=== PATIENT | female | born 1955 | race Hispanic/Latino ===

== ENCOUNTER 2018-01-10 05:48 | Day surgery (SDC) | payer OTHER ==
[2018-01-09 10:00] VITALS: BMI 24.2
--- NOTE | 2018-01-10 01:09 | HP ---
SHORT STAY HISTORY AND PHYSICAL DATE OF ADMISSION: 01/10/2018 HISTORY OF PRESENT ILLNESS: Ms. Iris Gary is a very pleasant 62-year-old Latin-Chinese female who comes for EGD and a colonoscopy. The patient had acid reflux for many years. Her symptoms are actually getting worse recently. She complains of severe heartburn along with regurgitation_. There is no dysphagia, no abdominal pain. The patient has family history of colon cancer. Her last colonoscopy was in 2012. The patient comes for EGD because of chronic acid reflux and for colonoscopy for colon cancer screening. ALLERGIES: CIPRO. SOCIAL HISTORY: The patient does not smoke or drink alcohol. MEDICAL ILLNESSES: 1. Hypertension. 2. Hyperlipidemia. 3. Anxiety. PHYSICAL EXAMINATION: GENERAL: Appears comfortable. VITAL SIGNS: Pulse is 70, blood pressure 130/80. HEENT: Conjunctivae clear. CARDIOVASCULAR SYSTEM: First and second heart sounds are normal. LUNGS: Clear to auscultation. ABDOMEN: Soft to palpate. No organomegaly. No tenderness. No masses. EXTREMITIES: Reveal no edema. ADMITTING DIAGNOSES: 1. Chronic acid reflux. 2. Family history of colon cancer. PLAN: EGD and colonoscopy. MTDD
[2018-01-10] MEDS ORDERED: Fentanyl 100 MCG/2 ML VIAL ONE (07:24)
--- NOTE | 2018-01-10 09:12 | OP ---
DATE OF PROCEDURE: 01/10/2018 SURGEON: Linda Osei M.D. OPERATIVE PROCEDURE: Colonoscopy with polypectomy. PREOPERATIVE DIAGNOSES: A 62-year-old female with family history of colon cancer. Th e patient is undergoing a colonoscopy for colon cancer screening. POSTOPERATIVE DIAGNOSES: 1. Left-sided diverticular disease. 2. Hemorrhoids. 3. A sessile polyp ascending colon, status post snare cautery. PROCEDURE IN DETAIL: The patient was placed on her left lateral position and was given sedation by A nesthesia Department. A rectal exam was done before the scope was advanced into the rectum. No othe r lesion felt on rectal exam. Then, Pentax video colonoscope was introduced into the rectum and adva nced all the way to cecum. The prep was excellent. The mucosa appeared normal. The appendiceal kaushik fice, cecum, no pathology seen. A sessile polyp in ascending colon was removed with snare cautery wi th good hemostasis. The hepatic flexure, transverse colon, splenic flexure, no pathology. The desce nding colon and sigmoid colon showed scattered diverticulosis. Retroflexion of scope in the rectum r evealed hemorrhoids.
--- NOTE | 2018-01-10 13:49 | OP ---
DATE OF PROCEDURE: 01/10/2018 OPERATIVE PROCEDURE: Esophagogastroduodenoscopy with biopsy. PREOPERATIVE DIAGNOSIS: A 62-year-old female with worsening acid reflux with regurgit ation of sour tasting fluid. The symptoms persisted and was very severe over the last several weeks. The patient is undergoing esophagogastroduodenoscopy. POSTOPERATIVE DIAGNOSES: 1. Moderate size hiatus hernia. 2. Erosive esophagitis in the distal esophagus with ulcerations and esophagitis. PROCEDURE IN DETAIL: The patient was placed on her left lateral position and was given sedation by A nesthesia Department. A Pentax video gastroscope under direct vision was passed down the oropharynx, past the GE junction. The scope was removed, because the patient became hypoxic and the patient was ventilated by the Anesthesia Department. Thus, the procedure was repeated again. The scope advance d past the GE junction, into the stomach and subsequently into the descending duodenum. Over the dis partice esophagus, the patient found to have esophagitis, ulcerations and erosions. Biopsy was obtained from the area. The patient had a moderate size hiatus hernia. Retroflexion failed to show any patho logy in the fundus and cardia. The gastric body and gastric antrum, no pathology seen. No pathology seen in the descending duodenum and the duodenal bulb. The stomach was decompressed and the scope r emoved. DISCHARGE PLANNING: This is a 62-year-old Latin-H[place]er female who came in for EGD and colonoscopy. The EGD showed erosive esophagitis and hiatus hernia. The colonoscopy showed left-sided diverticul ar disease, ascending colon polyp. DISCHARGE RECOMMENDATIONS: 1. The patient is advised to call me if she developed abdominal pain, hematochezia or fever. 2. Start the patient on omeprazole 40 once a day. 3. To come back to clinic in 2 weeks.
[2018-01-10] MEDS ORDERED: ePHEDrine/0.9% NaCl/PF SYRINGE 50 mg/10 ml ONE (17:11)
[2018-01-10] MEDS ORDERED: PROPOFOL 200 MG/20 ML VIAL ONE (17:11)
[2018-01-10] MEDS ORDERED: Lidocaine 1% PF 5 ML VIAL ONE (17:11)
[2018-01-10] MEDS ORDERED: Naloxone HCl 0.4 mg/ml Vial ONE (17:11)
== END 2018-01-10 09:32 | disposition home or self-care (01) ==
LOC: SDC 05:48
PROVIDERS: ATTEND Internal Medicine Gastroenterology
PROC: 0DB38ZX Excision of Lower Esophagus, Via Natural or Artificial Opening Endoscopic, Diagnostic (ICD-10-PCS; principal; 2018-01-10)
PROC: 0DBK8ZX Excision of Ascending Colon, Via Natural or Artificial Opening Endoscopic, Diagnostic (ICD-10-PCS; principal; 2018-01-10)
DX: Z12.11 Encounter for screening for malignant neoplasm of colon (principal); K21.0 Gastro-esophageal reflux disease with esophagitis; K22.10 Ulcer of esophagus without bleeding; K44.9 Diaphragmatic hernia without obstruction or gangrene; K57.30 Diverticulosis of large intestine without perforation or abscess without bleeding; K64.9 Unspecified hemorrhoids; I10 Essential (primary) hypertension; E78.5 Hyperlipidemia, unspecified; F41.9 Anxiety disorder, unspecified; Z80.0 Family history of malignant neoplasm of digestive organs; Z88.1 Allergy status to other antibiotic agents; Z79.899 Other long term (current) drug therapy
CPT/HCPCS: 88305; 88312; 88313; J2001; J2310; J2704; J3010

== ENCOUNTER 2018-06-06 08:43 | Outpatient (CLI) | payer OTHER ==
--- NOTE | 2018-06-11 11:02 | MMO ---
BILATERAL SCREENING MAMMOGRAM: Date: 06/06/18 COMPARISON: 06/07/17, 05/09/16, 05/21/12, and 01/18/14. HISTORY: Annual screening exam. This patient's mammogram was interpreted with the assistance of computer-aided detection. FINDINGS: Scattered fibroglandular changes of both breasts are noted. There is what appears to be a biopsy clip within the left breast. There is no dominant mass, suspicious calcification, or other signs of malig duncan. IMPRESSION: BIRADS 2: Benign Finding(s) POS: [facility]
== END 2018-06-06 08:44 | disposition home or self-care (01) ==
LOC: SCSMAMMO 08:43
PROVIDERS: ATTEND Family Medicine
DX: Z12.31 Encounter for screening mammogram for malignant neoplasm of breast (principal)
CPT/HCPCS: 77067

== ENCOUNTER 2018-07-28 07:18 | Outpatient (CLI) | payer OTHER ==
--- NOTE | 2018-07-28 09:23 | ULT ---
SONOGRAM ABDOMEN COMPLETE: History: Abdominal pain. Abnormal CT scan. FINDINGS: Gallbladder is surgically absent. Common duct is now 0.6 cm. Cysts are apparent within the hepatic pa renchyma measuring up to 1.8 cm. Spleen has a normal appearance. No free fluid. Large parapelvic cyst in the right kidney measures up to 8.2 cm. No hydronephrosis. Shadowing echogenicity at the left walter al hilum is apparent. No hydronephrosis. Visualized portions of the abdominal aorta, IVC and pancreas are unremarkable. IMPRESSION: 1. Status post cholecystectomy. No evidence of biliary obstruction. 2. Large right renal cyst. 3. Nonobstructing left renal calculus. POS: [facility]
--- NOTE | 2018-07-28 09:39 | ULT ---
PELVIC ULTRASOUND INCLUDING TRANSABDOMINAL AND TRANSVAGINAL AND VASCULAR DUPLEX WITH COLOR AND SPECTR AL DOPPLER IMAGING: COMPARISON: CT 04/22/2017. HISTORY: Adnexal pain. FINDINGS: The uterus measures 8.4 x 3.5 x 5.2 cm. The right ovary measures 2.1 x 2.1 x 2.7 cm. The left ovary measures 1.9 x 2.0 x 2.4 cm. Several small intrauterine fibroids up to 1.4 cm. Small calcific focu s at the level of the endometrial canal, possibly a small fibroid. This is stable when compared to t he prior CT scan from 2017. No pelvic abnormal fluid collection. Vascular duplex with color and spectral Doppler imaging demonstrates arterial inflow and venous outfl ow. IMPRESSION: Small intrauterine fibroids. A small calcific focus involving the endometrial region, probably a sma ll calcified fibroid, stable form 2017. No abnormal pelvic fluid collection or solid or cystic mass. No evidence for ovarian torsion. POS: [facility]
== END 2018-07-28 07:19 | disposition home or self-care (01) ==
LOC: SCSULT 07:18
PROVIDERS: ATTEND Family Medicine
DX: R10.2 Pelvic and perineal pain (principal); K58.9 Irritable bowel syndrome, unspecified; D25.9 Leiomyoma of uterus, unspecified; N28.1 Cyst of kidney, acquired; N20.0 Calculus of kidney; Z90.49 Acquired absence of other specified parts of digestive tract
CPT/HCPCS: 76700; 76856

== ENCOUNTER 2019-06-19 08:57 | Outpatient (CLI) | payer OTHER ==
--- NOTE | 2019-06-21 17:22 | EKG ---
Test Reason : Blood Pressure : / mmHG Vent. Rate : 063 BPM Atrial Rate : 063 BPM P-R Int : 216 ms QRS Dur : 100 ms QT Int : 488 ms P-R-T Axes : 045 -57 045 degrees QTc Int : 499 ms Sinus rhythm with 1st degree A-V block Left anterior fascicular block Possible Lateral infarct (cited on or before 22-APR-2017) Abnormal ECG When compared with ECG of 19-JUN-2019 09:38, (Unconfirmed) No significant change was found Confirmed by MJ DAVISON (2) on 06/21/2019 5:22:13 PM Referred By: DARRELL Confirmed By:MJ DAVISON
== END 2019-06-19 08:58 | disposition home or self-care (01) ==
LOC: LABBT 08:57
PROVIDERS: ATTEND Obstetrics & Gynecology
DX: Z01.818 Encounter for other preprocedural examination (principal); N95.0 Postmenopausal bleeding
CPT/HCPCS: 93005; 93010

== ENCOUNTER 2019-06-22 09:50 | Day surgery (SDC) | payer OTHER ==
[2019-06-19 09:16] VITALS: BMI 25.0
[2019-06-19 09:57] LABS: Hemoglobin 14.7 g/dL (12.0-16.0); Mean Corpuscular HGB CONC 33.4 g/dL (32.0-36.0); Mean Corpuscular Hemoglobin 31.7 pg (27.0-31.0); Mean Corpuscular Volume 94.9 fL (78.0-98.0); Mean Platelet Volume 8.1 fL (7.4-10.4); Platelet Count 221 thou/uL (130-400); RBC Distribution Width 11.9 % (11.5-14.5); Red Blood Cell (RBC) Count 4.64 mill/uL (4.20-5.40); White Blood Cell (WBC) Count 7.5 thou/uL (4.8-10.8)
[2019-06-22] MEDS ORDERED: Fentanyl 100 MCG/2 ML VIAL ONE (10:44)
[2019-06-22] MEDS ORDERED: Midazolam HCl 2 mg/2 ml Vial ONE (10:45)
[2019-06-22] MEDS ORDERED: ePHEDrine 50 MG/ML VIAL ONE (14:34)
[2019-06-22] MEDS ORDERED: PROPOFOL 200 MG/20 ML VIAL ONE (14:34)
[2019-06-22] MEDS ORDERED: Ketorolac Tromethamine 30 MG/ML VIAL ONE (14:34)
[2019-06-22] MEDS ORDERED: Lidocaine 1% PF 5 ML VIAL ONE (14:34)
--- NOTE | 2019-06-22 18:46 | OP ---
DATE OF PROCEDURE: 06/22/2019 PREOPERATIVE DIAGNOSIS: Persistent postmenopausal bleeding. POSTOPERATIVE DIAGNOSIS: Persistent postmenopausal bleeding. PROCEDURES PERFORMED: Cervical dilation, hysteroscopy, and endometrial curettage. KILN FURNITURE CASTER: None. COMPLICATIONS: None. ANESTHESIA: LMA. OPERATIVE FINDINGS: Uterus sounds to 8 cm. Normal-appearing endometrial cavity. One small intracervical polyp. Atrophic endometrium. DESCRIPTION OF PROCEDURE: The patient was taken back to the OR with IV fluids running. When she was in the OR, she was placed in dorsal supine position and anesthesia was obtained. Once the patient was asleep, she was placed in low dorsal lithotomy position, and the vagina was prepped in normal fashion for hysteroscopy. The bladder was drained. Surgeon was gowned and gloved. An operative speculum was placed into the vagina. The anterior lip of the cervix was grasped with a single-tooth tenaculum. The uterus sounded to approximately 8 cm. The cervix was then serially dilated to allow for passage of a 5 mm hysteroscope. The hysteroscope was then placed under direct visualization through the cervix and into the uterine cavity. The uterus was distended with normal saline and the above findings were noted. The tubal ostia were identified bilaterally. The hysteroscope was then removed. A gentle curettage was then performed with only scant tissue removed. The hysteroscope was replaced into the uterine cavity with a small polypoid appearing tissue noted in the lower aspect of the uterus. The hysteroscope was then removed and a polyp forceps was then gently placed through the cervix. This tissue was removed without difficulty. Hysteroscope was replaced one last time and was confirmed removal of the polypoid appearing tissue. No other intracavitary abnormalities. The hysteroscope was removed. The single-tooth tenaculum was removed and was noted to be hemostatic. The fluid deficit was approximately 700 mL. The patient was then cleaned, dried, taken to the recovery room in good condition after she awoke from anesthesia. The counts were correct. There were no complications. Job ID: [id number]
== END 2019-06-22 14:35 | disposition home or self-care (01) ==
LOC: SDC 09:50
PROVIDERS: ATTEND Obstetrics & Gynecology
PROC: 0UDB8ZX Extraction of Endometrium, Via Natural or Artificial Opening Endoscopic, Diagnostic (ICD-10-PCS; principal; 2019-06-22)
DX: N95.0 Postmenopausal bleeding (principal); N84.1 Polyp of cervix uteri; N88.8 Other specified noninflammatory disorders of cervix uteri; I10 Essential (primary) hypertension; E11.9 Type 2 diabetes mellitus without complications; Z79.899 Other long term (current) drug therapy; Z87.891 Personal history of nicotine dependence; Z88.1 Allergy status to other antibiotic agents
CPT/HCPCS: 85027; 86850; 86900; 86901; 88305; J0690; J1885; J2001; J2250; J2704; J3010; J3490

== ENCOUNTER 2019-10-20 08:01 | Day surgery (SDC) | payer OTHER ==
[2019-10-19 09:55] VITALS: BMI 25.2
[2019-10-19 10:28] LABS: Hemoglobin 14.2 g/dL (12.0-16.0); Mean Corpuscular Hemoglobin 32.1 pg (27.0-31.0); Mean Corpuscular Volume 97.3 fL (78.0-98.0); Platelet Count 233 thou/uL (130-400); RBC Distribution Width 12.2 % (11.5-14.5); Red Blood Cell (RBC) Count 4.43 mill/uL (4.20-5.40); White Blood Cell (WBC) Count 7.6 thou/uL (4.8-10.8)
[2019-10-19 11:06] LABS: ALT (SGPT) 13 U/L (8-55); AST (SGOT) 18 U/L (5-34); Albumin 4.2 g/dL (3.4-4.8); Alkaline Phosphatase 81 U/L (40-110); Anion Gap 11 mmol/L (10-20); BUN (Urea Nitrogen) 12 mg/dL (9.8-20.1); Bilirubin, Total 1.3 mg/dL (0.2-1.2); Calc. Creatinine Clearance 0 mL/min (70-130); Calcium 8.6 mg/dL (7.8-10.44); Carbon Dioxide 30 mmol/L (23-31); Chloride 102 mmol/L (98-107); Estimated GFR-MDRD 58; Globulin 2.9 g/dL (2.4-3.5); Glucose 94 mg/dL (80-115); Potassium 3.7 mmol/L (3.5-5.1); Protein, Total 7.1 g/dL (6.0-8.3); Sodium 139 mmol/L (136-145)
[2019-10-20] MEDS ORDERED: Gabapentin 300 MG CAP ONE (08:28)
[2019-10-20] MEDS ORDERED: Famotidine/PF 20 mg/2ml Vial ONE (08:29)
[2019-10-20] MEDS ORDERED: CeleCOXIB 100 MG CAP ONE (08:29)
[2019-10-20] MEDS ORDERED: HYDROmorphone 2 MG/ML VIAL ONE (09:29)
[2019-10-20] MEDS ORDERED: Fentanyl 100 MCG/2 ML VIAL ONE ×2 (09:29→12:34)
[2019-10-20] MEDS ORDERED: Lidocaine 1% w/Epinephrine 1:100K 20 ML VIAL ONE (09:32)
[2019-10-20] MEDS ORDERED: Bupivacaine PF 0.5% 30 ML VIAL ONE (09:32)
[2019-10-20] MEDS ORDERED: Midazolam HCl 2 mg/2 ml Vial ONE (10:25)
[2019-10-20] MEDS ORDERED: PROPOFOL 200 MG/20 ML VIAL ONE (11:12)
[2019-10-20] MEDS ORDERED: Dexamethasone 20 MG/5 ML VIAL ONE (11:12)
[2019-10-20] MEDS ORDERED: ePHEDrine/0.9% NaCl/PF SYRINGE 50 mg/10 ml ONE (11:12)
[2019-10-20] MEDS ORDERED: Lidocaine 1% PF 5 ML VIAL ONE (11:12)
[2019-10-20] MEDS ORDERED: Rocuronium Bromide 10 MG/ML (10ML VIAL) ONE (11:12)
[2019-10-20] MEDS ORDERED: Ondansetron PF 4 MG/2 ML Vial ONE (11:12)
[2019-10-20] MEDS ORDERED: Glycopyrrolate 0.2 MG/ML 5 ML SYRINGE ONE (11:12)
[2019-10-20] MEDS ORDERED: Promethazine HCl 25 MG/ML VIAL SLOW IVP PRN (12:01)
[2019-10-20] MEDS ORDERED: Meperidine HCl/PF 25 MG/ML VIAL SLOW IVP PRN (12:01)
[2019-10-20] MEDS ORDERED: HYDROmorphone 2 MG/ML VIAL SLOW IVP PRN (12:01)
[2019-10-20] MEDS ORDERED: Morphine 2 MG/ML SYRINGE SLOW IVP PRN (12:11)
[2019-10-20] MEDS ORDERED: HYDROcodone/Acetaminophen 5/325 mg Tablet PO PRN ×2 (12:11)
[2019-10-20] MEDS ORDERED: Zolpidem Tartrate 5 MG TAB PO PRN (12:11)
[2019-10-20] MEDS ORDERED: Ondansetron PF 4 MG/2 ML Vial IVP PRN (12:11)
[2019-10-20] MEDS ORDERED: Promethazine HCl 25 MG/ML VIAL IM PRN (12:11)
[2019-10-20] MEDS ORDERED: Acetaminophen 325 MG TAB PO PRN (12:11)
[2019-10-20] MEDS ORDERED: Bisacodyl 10 MG SUPP PR PRN (12:11)
[2019-10-20] MEDS ORDERED: diphenhydrAMINE 25 MG CAP PO PRN (12:11)
[2019-10-20] MEDS ORDERED: Simethicone Chewable 80 MG TAB PO PRN (12:11)
[2019-10-20] MEDS: Ibuprofen 800 MG TAB PO SCH ×2 (17:32→20:53)
[2019-10-20] MEDS: Sodium Chloride 0.9% 1,000 ML IV SCH ×3 (18:58→23:25)
[2019-10-20] MEDS: Ketorolac Tromethamine 30 MG/ML VIAL IVP SCH ×2 (18:59→20:55)
[2019-10-21] MEDS: Ibuprofen 800 MG TAB PO SCH (05:49)
[2019-10-21] MEDS: Ketorolac Tromethamine 30 MG/ML VIAL IVP SCH (05:50)
[2019-10-21 08:02] VITALS: BP 134/73; TEMP 98.2
--- NOTE | 2019-10-21 08:14 | PDOC.EVN ---
Event Note - Event Note Event Note: Discharge Note/Summary Pt is POD 1 sp scheduled RATLH BSO that was scheduled for postmenopausal bleeding. Pt underwent aforementioned procedure without complication. Discharge exam NAD Nonlabored breathing Abd soft, NTTP, incisions CDI x 4 Perineum dry A and O On POD 1 pt had met post op goals, ambulating, voiding and tolerating a regular diet. Discharge pain medication use was reviewed in detail. She is discharged home with plans to FU in my office in 2 weeks.
--- NOTE | 2019-10-21 09:25 | OP ---
DATE OF PROCEDURE: 10/20/2019 PREOPERATIVE DIAGNOSES: Postmenopausal bleeding refractory to medical management and dilation and curettage. POSTOPERATIVE DIAGNOSIS: Status post hysterectomy and bilateral salpingo-oophorectomy. PROCEDURES PERFORMED: Robotic-assisted total laparoscopic hysterectomy with bilateral salpingo-oophorectomy. CARDIOLOGY NURSE: Alyson Salazar PA-C. COMPLICATIONS: None. ESTIMATED BLOOD LOSS: Less than 75 mL. ANESTHESIA: GETA. OPERATIVE FINDINGS: 1. Normal vaginal mucosa. Normal-appearing cervix. Uterus sounds to 6 cm. 2. Normal-appearing uterus with small serosal fibroids noted. 3. Normal-appearing fallopian tube segments. 4. Normal-appearing ovaries bilaterally with small adjacent fibroid adenoma to the left ovary, that was removed and sent for pathologic review. 5. Surgical site hemostatic. PROCEDURE IN DETAIL: The patient was taken back to the OR with IV fluids running. Once she was in the OR, she was placed in dorsal supine position and anesthesia was obtained. 2 g of Ancef were administered and SCDs were placed on the lower extremities. Once the patient was asleep, she was placed in low dorsal lithotomy position and the abdomen and vagina were prepped and draped in normal fashion for gynecologic laparoscopy. Surgeons were scrubbed in. The bladder was drained. A Payam syringe was attached to the bladder for manipulation during the case as needed. An operative speculum was placed into the vagina and the anterior lip of the cervix was grasped at the anterior lip with a single-tooth tenaculum and the uterus was sounded to approximately 6 cm. A [employer] manipulator was placed into the uterus and vagina in normal fashion with a 6 cm tip and a 4 cm cup. After the manipulator was placed, the surgeon's gloves were changed and attention was turned to the laparoscopic portion of procedure. Beginning at the supraumbilical fold, anesthesia was injected underneath the skin. A 12-mm skin incision was made with a scalpel. The subcutaneous tissue was bluntly dissected with hemostats. A Veress needle was placed through this incision and the abdomen was insufflated without difficulty. After the Veress needle was removed, a 12-mm trocar was placed through this incision followed by the laparoscope. The above findings noted. The patient was then placed in Trendelenburg position. Three additional ports, which were the 11-mm right upper quadrant and the left and right lower quadrant 8-mm ports were placed under direct visualization without difficulty. After the ports were placed, the robot was docked to the patient's bedside and the instruments were directed under laparoscopic view into the operating field. Beginning on the patient's left side, the left fallopian tube segment was grasped. The ureter was identified on the patient's left side and noted to be well away from the IP ligament. The IP ligament was cauterized and transected, freeing the left ovary from the pelvic sidewall. A small nodular lesion that appeared to be a fibroadenoma was grasped next to the ovary and removed for pathologic review. The round ligament on the patient's left side was identified, cauterized, and transected. It was dissected into anterior and posterior leaves and directed posteriorly towards the ovary. The anterior and posterior leaves were then dissected down towards the uterine artery. The anterior leaf was dissected down towards the uterine cervix. The bladder was backfilled and noted to be well away from the planned colpotomy site. The bladder flap was then created by dissecting the vesicocervical fascia away from the planned colpotomy site. The uterine artery on the patient's left side was skeletonized, cauterized, and transected. Attention was then turned to the contralateral side, where the procedure was repeated without difficulty on the patient's right side. Ureter was identified on the patient's right side. The IP ligament was cauterized and transected. The round ligament was cauterized, transected, and divided into anterior and posterior leaves. The anterior leaf was taken down towards the contralateral side and the bladder flap was completed. The uterine artery was skeletonized, cauterized, and transected. The colpotomy was then completed circumferentially using monopolar scissors. The uterus, tube segment, and ovary specimen were retracted into the vagina. The vaginal cuff was irrigated and any small areas of bleeding were controlled with Bovie cauterization. The vaginal cuff was then closed with Stratafix suture in a running fashion and in 2 layers. After the vaginal cuff was closed, the vaginal cuff and surgical pedicles were copiously irrigated and suctioned dry. The pressure was dropped to 4 mmHg and no evidence of bleeding was noted. All instruments were then removed from the abdomen. The counts were correct. Gas was released from the abdomen. The fascial layer at the supraumbilical incision was closed with Vicryl suture. All 4 skin incisions were closed with Monocryl suture and dressed with Dermabond. The vagina was inspected at the end of the case with no bleeding noted. The patient was then cleaned, dried, taken out of lithotomy position, extubated, and transferred to the recovery room in good condition. Job ID: [id number]
== END 2019-10-21 09:00 | disposition home or self-care (01) ==
LOC: SDC 08:01 → 3SE 13:21 → SDC 10-21 09:00
PROVIDERS: ATTEND Obstetrics & Gynecology
PROC: 0UT74ZZ Resection of Bilateral Fallopian Tubes, Percutaneous Endoscopic Approach (ICD-10-PCS; principal; 2019-10-21)
PROC: 0UT24ZZ Resection of Bilateral Ovaries, Percutaneous Endoscopic Approach (ICD-10-PCS; principal; 2019-10-21)
PROC: 0UT94ZZ Resection of Uterus, Percutaneous Endoscopic Approach (ICD-10-PCS; principal; 2019-10-21)
DX: D25.2 Subserosal leiomyoma of uterus (principal); N80.0 Endometriosis of uterus; N83.8 Other noninflammatory disorders of ovary, fallopian tube and broad ligament; D27.1 Benign neoplasm of left ovary; K58.9 Irritable bowel syndrome, unspecified; I10 Essential (primary) hypertension; E78.00 Pure hypercholesterolemia, unspecified; Z79.899 Other long term (current) drug therapy; Z88.8 Allergy status to other drugs, medicaments and biological substances; Z88.1 Allergy status to other antibiotic agents; Z87.891 Personal history of nicotine dependence
CPT/HCPCS: 80053; 85027; 86850; 86900; 86901; 88307; J0690; J1100; J1170; J2001; J2250; J2405; J2704; J3010; S0020; S0028